=== PATIENT | male | born 1940 | race Caucasian/White ===

== ENCOUNTER 2019-06-29 17:46 | Observation (INO) | payer MEDICARE ==
[~2019-06-29] VITALS: Ht 172.7 cm; Wt 81.9 kg
[2019-06-29 18:33] LABS: BASOPHILS % (AUTO) 0.7 % (0.0-5.0); EOSINOPHILS % (AUTO) 1.8 % (0.0-8.0); HEMATOCRIT 43.1 % (42-54); LYMPHOCYTES % (AUTO) 38.3 % (21.0-51.0); MEAN CORPUSCULAR HEMOGLOBIN 31.7 pg (27.0-33.0); MEAN CORPUSCULAR HGB CONC 33.9 g/dL (32.0-36.0); MEAN CORPUSCULAR VOLUME 93.7 fL (79-99); MONOCYTES % (AUTO) 7.2 % (3.0-13.0); NEUTROPHILS % (AUTO) 51.9 % (40.0-77.0); PLATELET COUNT (AUTO) 267 K/uL (130-400); RED CELL DISTRIBUTION WIDTH 12.8 % (11.0-15.5); WHITE BLOOD COUNT (AUTO) 7.4 K/uL (4.8-10.8)
[2019-06-29 18:41] LABS: CREATININE 1.2 mg/dL (0.5-1.5); POTASSIUM 3.9 mmol/L (3.5-5.1)
[2019-06-29 18:46] LABS: ALBUMIN 3.6 g/dL (3.5-5.0); BILIRUBIN,TOTAL 0.8 mg/dL (0.2-1.0); TOTAL PROTEIN, SERUM 6.7 g/dL (6.0-8.3)
[2019-06-29] MEDS ORDERED: ASPIRIN 325 MG TABLET ONE (19:04)
[2019-06-29] MEDS ORDERED: NITROGLYCERIN 0.4 MG SL TAB SL PRN (20:30)
[2019-06-29] MEDS ORDERED: ONDANSETRON HCL 4 MG/2 ML VIAL IV PRN (20:30)
[2019-06-29] MEDS ORDERED: ACETAMINOPHEN 325 MG TAB PO PRN ×2 (20:30)
[2019-06-29] MEDS ORDERED: LACTULOSE 20 GM/30 ML UDCUP PO PRN (20:30)
[2019-06-29] MEDS ORDERED: HYDRALAZINE HCL 20 MG/ML VIAL IV PRN (20:45)
[2019-06-29] MEDS ORDERED: FAMOTIDINE 20MG TAB 20 MG TAB ONE (20:59)
[2019-06-29] MEDS ORDERED: ATORVASTATIN CALCIUM 20 MG TABLET ONE (20:59)
[2019-06-29] MEDS ORDERED: METOPROLOL TARTRATE 25 MG TAB ONE (21:00)
[2019-06-29] MEDS ORDERED: FAMOTIDINE 20MG TAB 20 MG TAB PO SCH (21:00)
[2019-06-29] MEDS ORDERED: METOPROLOL TARTRATE 25 MG TAB PO SCH (21:00)
[2019-06-29] MEDS ORDERED: ATORVASTATIN CALCIUM 20 MG TABLET PO SCH (21:00)
[2019-06-29 21:19] LABS: CHOLESTEROL 155 mg/dL (<200); HDL CHOLESTEROL 124 mg/dL (29-71); LDL DIRECT 90 mg/dL (0-99); TRIGLYCERIDES 236 mg/dL (30-200)
[2019-06-30 00:18] VITALS: BP 177/99
[2019-06-30] MEDS ORDERED: CITA10TA7 PO (00:30)
[2019-06-30] MEDS ORDERED: ATOR10 PO (00:30)
[2019-06-30] MEDS ORDERED: DONE5TAB33 PO (00:30)
[2019-06-30] MEDS ORDERED: LISI1TAB32 PO (00:30)
--- NOTE | 2019-06-30 01:13 | NUR ---
CONFUSED Pt restless,disoriented to time and place.He wants to leave,he refused lab to draw blood.Pts son was at bedside and asked what medication he received in ER because he does not behave like this at home.Informed him what medications he took in Er.Pt reoriented per staff.Notified Avtar Holden re pt.s behavior.He ordered Ativan x 1 dose.
[2019-06-30] MEDS ORDERED: LORAZEPAM 2 MG/ML 1 ML VIAL IVP ONE (01:30)
--- NOTE | 2019-06-30 02:20 | NUR ---
STATUS Pt walking in the room,had changed from hospital gown to his own clothes,he removed tele pack,He said he's leaving.Son at bedside,son had refused Ativan ordered.Pt not in distress.Denies chest pain or discomfort.
--- NOTE | 2019-06-30 02:51 | NUR ---
DANY Pt.s son wants to take him home AMRosy,explained to him risks,consequences involved in leaving the hospital at this time,he verbalized understanding.He said he will take him to his Md in am.Notified Avtar Holden Np,retail warehouse associate Lesa Martin Rn and security.
--- NOTE | 2019-06-30 03:01 | NUR ---
AMA Pt went home AMA,no iv access.Pt stable,not in distress.
[2019-06-30] MEDS ORDERED: NON-FORMULARY MEDICATION 1 EACH (Citalopram Hydrobromide (Citalopram HBr) 10 MG) PO SCH (09:00)
[2019-06-30] MEDS ORDERED: ASPIRIN 325 MG TABLET PO SCH (09:00)
[2019-06-30] MEDS ORDERED: NON-FORMULARY MEDICATION 1 EACH (Lisinopril/Hydrochlorothiazide (Lisinopril-Hctz 10-12.5 m PO SCH (09:00)
[2019-06-30] MEDS ORDERED: ENOXAPARIN SODIUM 40 MG/0.4 ML SYRINGE SQ SCH (09:00)
[2019-06-30] MEDS ORDERED: DONEPEZIL HCL 5 MG TAB PO SCH (18:00)
== END 2019-06-30 03:00 | disposition left against medical advice (07) ==
LOC: EDH 17:46 → EDHIP 20:30 → 3BH 23:16
PROVIDERS: ADMIT Internal Medicine; ATTEND Internal Medicine
DX: R07.89 Other chest pain (principal); I10 Essential (primary) hypertension; E78.5 Hyperlipidemia, unspecified; F03.90 Unspecified dementia, unspecified severity, without behavioral disturbance, psychotic disturbance, mood disturbance, and anxiety; Z85.46 Personal history of malignant neoplasm of prostate; Z90.49 Acquired absence of other specified parts of digestive tract; Z87.891 Personal history of nicotine dependence
CPT/HCPCS: 36415; 71045; 80053; 80061; 82550; 83690; 84484; 85025; 93005; 99284; G0378 ×6